=== PATIENT | female | born 1985 ===

== ENCOUNTER 2017-01-05 21:56 | Emergency (ER) | payer BC ==
[2017-01-05 22:08] VITALS: BP 145/95
--- NOTE | 2017-01-05 22:18 | EDM.PDOC ---
ED HPI GENERAL MEDICAL PROBLEM - General Chief Complaint: Headache Stated Complaint: HEADACHE Time Seen by Provider: 01/05/17 22:13 Source of Information: Reports: Patient History Limitations: Reports: No Limitations - History of Present Illness INITIAL COMMENTS - FREE TEXT/NARRATIVE: 30-year-old female presents the ED with acute onset of a severe left hemicranial headache associated with nausea without vomiting. Really sensitive to light. She states this is perhaps the worst headache she's ever experienced. No falls or recent closed head injuries. She was outside in today's hot sun for 5 hours today. No cramping anywhere. Not aware of anything that she may precipitated the headache. Headache started fairly suddenly at about 1700 hours today. She has had occasional migraine headaches in the past but not for a while.also aware that she is a very painful neck. She often has to see the chiropractor for this. Onset: Today Onset Date: 01/05/17 Onset Time: 17:00 Duration: Hour(s): Location: Reports: Head, Neck Quality: Reports: Ache, Throbbing, Other Severity: Severe (hounding.) Improves with: Reports: None Worsens with: Reports: Other (light.), Movement Context: Denies: Activity, Exercise, Lifting, Sick Contact, Trauma Associated Symptoms: Reports: Headaches, Nausea/Vomiting. 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 [No Known Home Meds] 01/05/17 [History] Flexirle 10 mg PO ASDIRECTED 01/05/17 [History] Gabapentin [Neurontin] 600 mg PO DAILY 01/05/17 [History] traMADol HCl [Tramadol HCl] 50 mg PO ASDIRECTED 01/05/17 [History] Past Medical History Musculoskeletal History: Reports: Back Pain, Chronic (is received facet joint injections from Dr. fam through pain management.) Neurological History: Reports: Migraines ED ROS GENERAL - Review of Systems Review Of Systems: See Below Constitutional: Denies: Fever, Chills, Malaise, Weakness, Fatigue, Weight Loss HEENT: Reports: Vision Change. Denies: Eye Pain Respiratory: Reports: No Symptoms (sensitive to light.) Cardiovascular: Reports: No Symptoms Endocrine: Reports: No Symptoms GI/Abdominal: Reports: Nausea (without any vomiting) Musculoskeletal: Reports: Neck Pain. Denies: Shoulder Pain, Arm Pain, Back Pain , Hand Pain, Leg Pain, Foot Pain, Joint Pain, Joint Swelling Skin: Reports: No Symptoms Neurological: Reports: Headache. Denies: Confusion, Dizziness, Numbness, Paresthesia, Seizure, Syncope, Tingling, Tremors, Trouble Speaking, Difficulty Walking, Weakness, Change in Speech, Gait Disturbance Psychiatric: Reports: No Symptoms Hematologic/Lymphatic: Reports: No Symptoms Immunologic: Reports: No Symptoms - Physical Exam Exam: See Below Exam Limited By: No Limitations General Appearance: Alert, Moderate Distress (seems to be quite sent to light and continues to close and hold her hand over her left eye.) Eye Exam: Bilateral Eye: Normal Inspection, PERRL Throat/Mouth: Normal Inspection, Normal Lips, Normal Oropharynx Head Exam: Atraumatic, Normocephalic Neck: Normal Inspection, Supple, Non-Tender, Full Range of Motion, Tender Lateral (mild. No paraspinal muscle spasm identified.), Other (some pain on full extension of the neck. Some pain on full flexion of the neck.). No: Lymphadenopathy (L), Lymphadenopathy (R) Respiratory/Chest: No Respiratory Distress, Lungs Clear, Normal Breath Sounds, No Accessory Muscle Use Cardiovascular: Normal Peripheral Pulses, Regular Rate, Rhythm, No Edema, No Murmur GI/Abdominal: Normal Bowel Sounds, Soft, Non-Tender, No Organomegaly, No Distention Neuro Exam (Abbreviated): Alert, Oriented, CN II-XII Intact, Normal Cognition, Normal Gait, Normal Reflexes, No Motor/Sensory Deficits, Other (number finger to nose, normal rapid alternating movements.) DTR: 2+: Bicep (R), Bicep (L), Patella (R), Patella (L), Achilles (R), Achilles (L) Back Exam: Normal Inspection, Vertebral Tenderness. No: Full Range of Motion Extremities: Normal Inspection (lower back.), Normal Range of Motion, Non-Tender , No Pedal Edema Psychiatric: Normal Affect, Normal Mood Skin Exam: Warm, Dry, Intact, Normal Color, No Rash Course - Vital Signs Last Recorded V/S: Last Vital Signs Temp 36.6 C 01/05/17 22:07 Pulse 81 01/05/17 22:07 Resp 20 01/05/17 22:07 BP 145/95 H 01/05/17 22:07 Pulse Ox 98 01/05/17 22:07 - Orders/Labs/Meds Orders: Active Orders 24 hr Category Date Time Status Head wo Cont [CT] Stat Exams 01/05/17 22:53 Taken Dextrose 5%-0.9% NaCl [Dextrose 5%-Normal Saline] 1,000 Med 01/05/17 22:30 Active ml IV ASDIRECTED Medication Orders Dextrose/Sodium Chloride (Dextrose 5%-Normal Saline) 1,000 mls @ 999 mls/hr IV ASDIRECTED JORGE Last Admin: 01/05/17 22:38 Dose: 999 mls/hr Meds: Medications Generic Name Dose Route Start Last Admin Trade Name Freq PRN Reason Stop Dose Admin Dextrose/Sodium Chloride 1,000 mls @ 999 mls/hr 01/05/17 22:30 01/05/17 22:38 Dextrose 5%-Normal Saline IV 999 mls/hr ASDIRECTED JORGE Administration Discontinued Medications Generic Name Dose Route Start Last Admin Trade Name Freq PRN Reason Stop Dose Admin Diphenhydramine HCl 50 mg 01/05/17 22:19 01/05/17 22:38 Benadryl IVPUSH 01/05/17 22:20 50 mg ONETIME ONE Administration Hydromorphone HCl 0.5 mg 01/05/17 22:19 01/05/17 22:38 Dilaudid IVPUSH 01/05/17 22:20 0.5 mg ONETIME ONE Administration Metoclopramide HCl 10 mg 01/05/17 22:19 01/05/17 22:38 Reglan IVPUSH 01/05/17 22:20 10 mg ONETIME ONE Administration - Radiology Interpretation Free Text/Narrative:: 30-year-old female presents the ED with a severe left hemicranial headache associated nausea without vomiting. Pain came on rather suddenly around 1700 hours. She has not noticed any change in bowels. She notices that she is sensitive to light. Neuro exam is completely normal. Heart was sinus murmurs identified. Plan IV D5 normal saline and opened. Given Dilaudid 0.5 mg IV with Benadryl 50 mg IV and Reglan 10 mg IV for headache and nausea relief. She's allergic to Celebrex and therefore will not receive any Toradol. - Re-Assessments/Exams Free Text/Narrative Re-Assessment/Exam: 01/05/17 22:50 Patient just received medications in the last 10 minutes. She is now nauseated and dry heaving.Will have CT head done without contrast. 01/05/17 23:33CT scan of the brain is within normal limits. Her headache is down to 1/10 no nausea is alleviated completely. She will therefore be discharged home to bed. Advised her to look at her diet strongly as strongly suspect a dietary precipitant of migraine headache today. Departure - Departure Time of Disposition: 23:33 Disposition: Home, Self-Care 01 Condition: fair Clinical Impression: Migraine - Discharge Information Referrals: Jose Palmer MD [Primary Care Provider] - Forms: ED Department Discharge Additional Instructions: Evaluation in the emergency room tonight in regards to development of a severe migraine headache primary left hemicrania with associated nausea and vomiting. CT scan of the brain was carried out since you declared as being the worst headache they've ever experienced. CT scan of the brain was found to be completely normal. You're treated with intravenous medications Benadryl 50 mg which eases nausea. Reglan 10 mg for nausea and headache relief as well as Dilaudid 0.5 mg for headache relief. Strongly located her diet over the last 12 hours this is most likely there is a dietary trigger that set this headache off today. Trigger look at foods that are high nitrate such as smoked meats or deli meats or hot kalpesh sticks ,beef jerky etc. Red food dyes that may be added to food coloring in various candies or drinking boxes such as Cran apple , cranberry, cran raspberry juices or even Red Gatorade. MSG( monosodium gluconate) found as a salt added to junkfood such as Cheetos ,chips ,D[place]ib[place]ian food and soups. Other common culprits are tear is seen which is patent hyperconcentration in winds particularly red wine and aged cheese that he would actually have to cut up --block cheese. Fifth culprit can be dark chocolate but you would have to eat almost the entire [employer] chocolate bar to precipitate of migraine. - My Orders Last 24 Hours: My Active Orders 01/05/17 22:30 Dextrose 5%-0.9% NaCl [Dextrose 5%-Normal Saline] 1,000 ml IV ASDIRECTED 01/05/17 22:53 Head wo Cont [CT] Stat - Assessment/Plan Last 24 Hours: My Active Orders 01/05/17 22:30 Dextrose 5%-0.9% NaCl [Dextrose 5%-Normal Saline] 1,000 ml IV ASDIRECTED 01/05/17 22:53 Head wo Cont [CT] Stat
[2017-01-05] MEDS ORDERED: HYDROmorphone 0.5 MG/0.5 ML Syringe IVPUSH ONE (22:19)
[2017-01-05] MEDS ORDERED: diphenhydrAMINE 50 MG/ML SDV IVPUSH ONE (22:19)
[2017-01-05] MEDS ORDERED: Metoclopramide 10 MG/2 ML SDV IVPUSH ONE (22:19)
[2017-01-05] MEDS ORDERED: Dextrose 5%-0.9% NaCl 1,000 ML IV SCH (22:30)
--- NOTE | 2017-01-08 11:12 | CT ---
Head CT Technique: Multiple axial sections through the brain were obtained. Intravenous contrast was not utilized. Comparison: No previous intracranial imaging. Findings: Ventricles along with basal cisterns and sulci over the convexities are within normal limits for the patient's age. No abnormal parenchymal densities are seen. No evidence of intracranial hemorrhage. No midline shift or mass effect is seen. Asymmetric size of the temporal horns of the lateral ventricles are noted which are felt to be incidental. Bone window settings were reviewed which show no discrete calvarial abnormality. Visualized sinuses are clear. Impression: 1. Nothing acute is identified on noncontrast head CT study. Diagnostic code #2 Agree with preliminary report issued by [facility] ([facility] preliminary report dictated on 01/06/17, 12:29 AM [facility])
== END 2017-01-05 23:43 | disposition home or self-care (01) ==
LOC: SUPCPDRO 21:56 → JD.ED 21:56
DX: G43.909 Migraine, unspecified, not intractable, without status migrainosus (principal); Z79.899 Other long term (current) drug therapy; Z88.8 Allergy status to other drugs, medicaments and biological substances
CPT/HCPCS: 70450; 96361; 96374; 96375; 99284; J1170; J1200; J2765; J7042